=== PATIENT | female | born 1980 | race African-American/Black ===

== ENCOUNTER 2016-11-12 11:25 | Emergency (ER) | payer BC ==
[2016-11-12 11:30] VITALS: BP 150/112; PULSE 67; TEMP 98; BMI 38.4
== END 2016-11-12 11:34 | disposition left against medical advice (07) ==
LOC: JER 11:25
DX: Z53.21 Procedure and treatment not carried out due to patient leaving prior to being seen by health care provider (principal)
CPT/HCPCS: 99281-25

== ENCOUNTER 2017-04-18 14:11 | Emergency (ER) | payer BC, OTHER ==
[2017-04-18 14:19] VITALS: BP 111/63; PULSE 77; TEMP 98.1; BMI 34.0
[2017-04-18] MEDS ORDERED: KETOROLAC TROMETHAMINE 60 MG/2 ML VIAL IM ONE (15:04)
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
[2017-04-18] MEDS ORDERED: ONDANSETRON *ODT* 4 MG TABLET SL ONE (15:15)
[2017-04-18] MEDS ORDERED: ONDANSETRON *ODT* 4 MG TABLET ONE (15:17)
[2017-04-18] MEDS ORDERED: KETOROLAC TROMETHAMINE 60 MG/2 ML VIAL ONE (15:20)
== END 2017-04-18 15:41 | disposition home or self-care (01) ==
LOC: JERFT 14:11
PROC: 3E0233Z Introduction of Anti-inflammatory into Muscle, Percutaneous Approach (ICD-10-PCS; principal; 2017-04-18)
DX: S13.4XXA Sprain of ligaments of cervical spine, initial encounter (principal); Z98.84 Bariatric surgery status; V48.0XXA Car driver injured in noncollision transport accident in nontraffic accident, initial encounter; Y93.89 Activity, other specified; Y92.410 Unspecified street and highway as the place of occurrence of the external cause
CPT/HCPCS: 84703; 99281-25

== ENCOUNTER 2021-03-25 09:56 | Inpatient (IN) | payer OTHER ==
[2021-03-25] MEDS ORDERED: SODIUM CHLORIDE 1,000 ML IV STA (10:45)
[2021-03-25] MEDS ORDERED: ACETAMINOPHEN 1000 MG/100 ML VIAL (NON FORMULARY) IVPB ONE (10:45)
[2021-03-25] MEDS ORDERED: ACETAMINOPHEN INJECTION 100 ML IVPB ONE (10:54)
[2021-03-25 11:16] LABS: BASO % 1.1 % (0-2.0); HEMOGLOBIN 10.3 GM/dL (10.7-15.3); LYMPH % 4.4 % (8-40); MCH 23.8 pg (25.7-33.7); MCHC 32.3 g/dl (32.0-36.0); MEAN CELL VOLUME 73.5 fl (80-96); MEAN PLT VOLUME 6.7 fl (7.5-11.1); MONO % 3.8 % (3.8-10.2); NEUT % 90.7 % (42.8-82.8); PLATELET COUNT 264 10^3/uL (134-434); RBC 4.35 M/mm3 (3.60-5.2); RDW 16.6 % (11.6-15.6); WHITE BLOOD COUNT 10.7 K/mm3 (4.0-10.0)
[2021-03-25 11:35] LABS: ALBUMIN 3.2 g/dl (3.4-5.0); BLOOD UREA NITROGEN 9.3 mg/dL (7-18); CALCIUM 8.6 mg/dL (8.5-10.1)
[2021-03-25 11:39] LABS: CREATININE 0.9 mg/dL (0.55-1.3)
[2021-03-25 11:40] LABS: BILIRUBIN,TOTAL 1.8 mg/dL (0.2-1); TOT PROT 7.2 g/dl (6.4-8.2)
[2021-03-25] MEDS ORDERED: LIDOCAINE 2.5%/PRILOCAINE 2.5% 30 GRAM TUBE TP ONE (13:49)
[2021-03-25] MEDS ORDERED: LIDOCAINE 2.5%/PRILOCAINE 2.5% (5 Gram/TUBE) TP ONE (14:03)
[2021-03-25 14:28] LABS: URINE APPEARANCE CLEAR; URINE BILIRUBIN NEGATIVE (NEGATIVE); URINE COLOR YELLOW; URINE GLUCOSE (UA) NEGATIVE (NEGATIVE); URINE KETONE NEGATIVE (NEGATIVE); URINE LEUK ESTERASE NEGATIVE (NEGATIVE); URINE NITRITE NEGATIVE (NEGATIVE); URINE PROTEIN NEGATIVE (NEGATIVE)
[2021-03-25 14:29] LABS: HCG,QUALITATIVE URINE Negative
[2021-03-25] MEDS ORDERED: morphine CARPU-JECT 4 MG/1 ML DISP.SYRIN IVPUSH ONE (15:55)
[2021-03-25] MEDS ORDERED: morphine SULFATE 4 MG/ML VIAL ONE (16:05)
[2021-03-25] MEDS ORDERED: CEFTRIAXONE 1 GM in DEXTROSE 5%-WATER - 100 ML IVPB ONE (16:44)
[2021-03-25] MEDS ORDERED: DOXYCYCLINE INJECTION 100 MG in DEXTROSE 5%-WATER 100 ML IVPB ONE (16:45)
[2021-03-25] MEDS ORDERED: CEFTRIAXONE 1 GM/50 ML BAG ONE (17:02)
[2021-03-25] MEDS ORDERED: DOXYCYCLINE HYCLATE 100 MG VIAL ONE (17:02)
[2021-03-25] MEDS: SODIUM CHLORIDE 1,000 ML IV SCH (17:55)
[2021-03-25] MEDS ORDERED: CEFTRIAXONE 2 GM in DEXTROSE 5%-WATER 100 ML IVPB ONE (18:28)
[2021-03-25] MEDS: ENOXAPARIN NA (PORCINE) 40 MG/0.4 ML DISP.SYRIN SQ SCH (18:44)
[2021-03-25] MEDS ORDERED: ONDANSETRON 4 MG/2 ML VIAL IVPUSH PRN (19:15)
[2021-03-25] MEDS ORDERED: MORPHINE SULFATE 2 MG/ML VIAL ONE (20:22)
[2021-03-25] MEDS: MORPHINE SULFATE 2 MG/ML VIAL IVPUSH PRN (20:26)
[2021-03-26] MEDS ORDERED: ACETAMINOPHEN 325 MG TABLET (FP) ONE (02:09)
[2021-03-26] MEDS: ACETAMINOPHEN 325 MG TABLET (FP) PO PRN (02:12)
[2021-03-26 03:15] VITALS: BMI 38.5
[2021-03-26] MEDS: MORPHINE SULFATE 2 MG/ML VIAL IVPUSH PRN ×5 (03:32→21:38)
[2021-03-26] MEDS ORDERED: DOXYCYCLINE INJECTION 100 MG in DEXTROSE 5%-WATER 100 ML IVPB SCH (06:00)
[2021-03-26] MEDS ORDERED: DEXTROSE 5%-WATER 100 ML IVPB ONE ×2 (07:19→16:28)
[2021-03-26] MEDS ORDERED: DOXYCYCLINE HYCLATE 100 MG VIAL ONE (07:19)
[2021-03-26] MEDS: ENOXAPARIN NA (PORCINE) 40 MG/0.4 ML DISP.SYRIN SQ SCH (09:08)
[2021-03-26 10:37] LABS: HEMOGLOBIN 9.7 GM/dL (10.7-15.3); MCH 23.1 pg (25.7-33.7); MCHC 31.2 g/dl (32.0-36.0); MEAN CELL VOLUME 74.2 fl (80-96); MEAN PLT VOLUME 7.5 fl (7.5-11.1); PLATELET COUNT 261 10^3/uL (134-434); RBC 4.17 M/mm3 (3.60-5.2); WHITE BLOOD COUNT 14.5 K/mm3 (4.0-10.0)
[2021-03-26 11:03] LABS: ALBUMIN 2.7 g/dl (3.4-5.0); BLOOD UREA NITROGEN 7.8 mg/dL (7-18); CALCIUM 7.8 mg/dL (8.5-10.1); MAGNESIUM 2.2 mg/dL (1.8-2.4)
[2021-03-26 11:07] LABS: CREATININE 0.7 mg/dL (0.55-1.3)
[2021-03-26 11:08] LABS: TOT PROT 6.3 g/dl (6.4-8.2)
[2021-03-26 11:09] LABS: PHOSPHOROUS 2.8 mg/dL (2.5-4.9)
[2021-03-26 12:57] LABS: ERYTHROCYTE SEDIMENTATION RATE 40 mm/hr (0-20)
[2021-03-26] MEDS: SODIUM CHLORIDE 1,000 ML IV SCH ×2 (13:22→18:39)
[2021-03-26 13:28] LABS: ANISOCYTOSIS 1+; MACROCYTOSIS 0; PLATELET ESTIMATE NORMAL
[2021-03-26] MEDS: CEFTRIAXONE 2 GM in DEXTROSE 5%-WATER 2 GM/100 ML BAG IVPB SCH (16:29)
[2021-03-26] MEDS: MELATONIN 5 MG TABLETS PO PRN (21:40)
[2021-03-27] MEDS: MORPHINE SULFATE 2 MG/ML VIAL IVPUSH PRN ×3 (02:02→14:26)
[2021-03-27] MEDS: SODIUM CHLORIDE 1,000 ML IV SCH ×2 (03:03→15:54)
[2021-03-27] MEDS ORDERED: DEXTROSE 5%-WATER 100 ML IVPB ONE (10:18)
[2021-03-27] MEDS: CEFTRIAXONE 2 GM in DEXTROSE 5%-WATER 2 GM/100 ML BAG IVPB SCH (10:20)
[2021-03-27] MEDS: ENOXAPARIN NA (PORCINE) 40 MG/0.4 ML DISP.SYRIN SQ SCH (10:30)
[2021-03-27 11:49] LABS: ALBUMIN 2.3 g/dl (3.4-5.0); BLOOD UREA NITROGEN 6.2 mg/dL (7-18)
[2021-03-27 11:50] LABS: CALCIUM 7.8 mg/dL (8.5-10.1)
[2021-03-27 11:51] LABS: BILIRUBIN,TOTAL 1.4 mg/dL (0.2-1); TOT PROT 5.9 g/dl (6.4-8.2)
[2021-03-27 11:53] LABS: CREATININE 0.7 mg/dL (0.55-1.3)
[2021-03-27 11:55] LABS: HEMATOCRIT 27.5 % (32.4-45.2); HEMOGLOBIN 8.8 GM/dL (10.7-15.3); MCH 23.5 pg (25.7-33.7); MEAN CELL VOLUME 73.3 fl (80-96); MEAN PLT VOLUME 7.5 fl (7.5-11.1); PLATELET COUNT 243 10^3/uL (134-434); RBC 3.75 M/mm3 (3.60-5.2); RDW 16.8 % (11.6-15.6); WHITE BLOOD COUNT 17.9 K/mm3 (4.0-10.0)
[2021-03-27] MEDS: ACETAMINOPHEN 325 MG TABLET (FP) PO PRN (21:31)
[2021-03-27] MEDS: MELATONIN 5 MG TABLETS PO PRN (21:31)
[2021-03-28] MEDS: MORPHINE SULFATE 2 MG/ML VIAL IVPUSH PRN ×2 (04:30→22:11)
[2021-03-28] MEDS ORDERED: DEXTROSE 5%-WATER 100 ML IVPB ONE (10:02)
[2021-03-28] MEDS: CEFTRIAXONE 2 GM in DEXTROSE 5%-WATER 2 GM/100 ML BAG IVPB SCH (10:11)
[2021-03-28] MEDS: ENOXAPARIN NA (PORCINE) 40 MG/0.4 ML DISP.SYRIN SQ SCH (10:11)
[2021-03-28 10:35] LABS: HEMATOCRIT 26.5 % (32.4-45.2); HEMOGLOBIN 8.6 GM/dL (10.7-15.3); MCH 23.7 pg (25.7-33.7); MCHC 32.4 g/dl (32.0-36.0); MEAN PLT VOLUME 7.3 fl (7.5-11.1); PLATELET COUNT 268 10^3/uL (134-434); RBC 3.63 M/mm3 (3.60-5.2); RDW 16.6 % (11.6-15.6)
[2021-03-28 10:42] LABS: CALCIUM 7.5 mg/dL (8.5-10.1)
[2021-03-28 10:43] LABS: ALBUMIN 2.3 g/dl (3.4-5.0); BLOOD UREA NITROGEN 4.8 mg/dL (7-18)
[2021-03-28 10:46] LABS: CREATININE 0.5 mg/dL (0.55-1.3)
[2021-03-28 10:49] LABS: BILIRUBIN,TOTAL 1.1 mg/dL (0.2-1); TOT PROT 5.8 g/dl (6.4-8.2)
[2021-03-28] MEDS: KCL 10 MEQ IVPB 10 MEQ/100 ML INFUS.BAG IVPB SCH ×2 (15:57→17:05)
[2021-03-28] MEDS: MELATONIN 5 MG TABLETS PO PRN (22:11)
[2021-03-29] MEDS: ACETAMINOPHEN 325 MG TABLET (FP) PO PRN ×2 (04:48→14:09)
[2021-03-29 10:12] LABS: HEMATOCRIT 27.6 % (32.4-45.2); HEMOGLOBIN 8.8 GM/dL (10.7-15.3); MCH 23.2 pg (25.7-33.7); MEAN CELL VOLUME 72.5 fl (80-96); MEAN PLT VOLUME 7.1 fl (7.5-11.1); PLATELET COUNT 284 10^3/uL (134-434); RBC 3.81 M/mm3 (3.60-5.2); RDW 16.7 % (11.6-15.6); WHITE BLOOD COUNT 13.6 K/mm3 (4.0-10.0)
[2021-03-29 10:38] LABS: CALCIUM 7.6 mg/dL (8.5-10.1)
[2021-03-29 10:39] LABS: BLOOD UREA NITROGEN 4.9 mg/dL (7-18)
[2021-03-29 10:42] LABS: CREATININE 0.6 mg/dL (0.55-1.3)
[2021-03-29] MEDS ORDERED: DEXTROSE 5%-WATER 100 ML IVPB ONE (11:13)
[2021-03-29] MEDS: CEFTRIAXONE 2 GM in DEXTROSE 5%-WATER 2 GM/100 ML BAG IVPB SCH (11:23)
[2021-03-29] MEDS ORDERED: PT OWN MED DRAWER 7, Y5N ONE (19:47)
[2021-03-30] MEDS: MELATONIN 5 MG TABLETS PO PRN ×2 (00:32→23:35)
[2021-03-30] MEDS: ACETAMINOPHEN 325 MG TABLET (FP) PO PRN ×3 (00:32→23:35)
[2021-03-30] MEDS ORDERED: ACETAMINOPHEN 1000 MG/100 ML VIAL (NON FORMULARY) IVPB ONE (06:37)
[2021-03-30 08:26] LABS: HEMATOCRIT 27.3 % (32.4-45.2); HEMOGLOBIN 8.8 GM/dL (10.7-15.3); MCH 23.1 pg (25.7-33.7); MCHC 32.4 g/dl (32.0-36.0); MEAN CELL VOLUME 71.4 fl (80-96); MEAN PLT VOLUME 6.8 fl (7.5-11.1); PLATELET COUNT 299 10^3/uL (134-434); RBC 3.82 M/mm3 (3.60-5.2); RDW 16.6 % (11.6-15.6); WHITE BLOOD COUNT 13.2 K/mm3 (4.0-10.0)
[2021-03-30 09:06] LABS: BLOOD UREA NITROGEN 6.9 mg/dL (7-18); CALCIUM 7.6 mg/dL (8.5-10.1)
[2021-03-30 09:09] LABS: CREATININE 0.5 mg/dL (0.55-1.3)
[2021-03-30] MEDS ORDERED: DEXTROSE 5%-WATER 100 ML IVPB ONE (09:17)
[2021-03-30] MEDS: CEFTRIAXONE 2 GM in DEXTROSE 5%-WATER 2 GM/100 ML BAG IVPB SCH (09:23)
[2021-03-30] MEDS ORDERED: PT OWN MED DRAWER 7, Y5N ONE (12:10)
[2021-03-30] MEDS ORDERED: POTASSIUM CHLORIDE TABS 20 MEQ TABLET.ER (FP) PO ONE ×2 (19:00→22:00)
[2021-03-30] MEDS: LACTOBACILLUS ACIDOPHILUS 1 TABLET PO SCH ×2 (19:07→21:42)
[2021-03-31] MEDS ORDERED: DEXTROSE 5%-WATER 100 ML IVPB ONE ×2 (09:58→10:34)
[2021-03-31] MEDS: LACTOBACILLUS ACIDOPHILUS 1 TABLET PO SCH (10:04)
[2021-03-31 10:26] LABS: BASO % 0.3 % (0-2.0); EOS % 0.8 % (0-4.5); HEMATOCRIT 28.3 % (32.4-45.2); HEMOGLOBIN 9.1 GM/dL (10.7-15.3); LYMPH % 9.9 % (8-40); MCH 23.2 pg (25.7-33.7); MCHC 32.3 g/dl (32.0-36.0); MEAN CELL VOLUME 71.9 fl (80-96); MEAN PLT VOLUME 7.1 fl (7.5-11.1); MONO % 9.7 % (3.8-10.2); NEUT % 79.3 % (42.8-82.8); PLATELET COUNT 369 10^3/uL (134-434); RBC 3.94 M/mm3 (3.60-5.2); RDW 16.7 % (11.6-15.6); WHITE BLOOD COUNT 12.4 K/mm3 (4.0-10.0)
[2021-03-31] MEDS ORDERED: SODIUM CHLORIDE 1,000 ML IV SCH (10:30)
[2021-03-31 10:50] LABS: CALCIUM 7.9 mg/dL (8.5-10.1)
[2021-03-31 10:51] LABS: ALBUMIN 2.3 g/dl (3.4-5.0); BLOOD UREA NITROGEN 4.7 mg/dL (7-18); MAGNESIUM 2.1 mg/dL (1.8-2.4)
[2021-03-31 10:54] LABS: CREATININE 0.5 mg/dL (0.55-1.3)
[2021-03-31 10:55] LABS: BILIRUBIN,TOTAL 0.4 mg/dL (0.2-1); TOT PROT 6.1 g/dl (6.4-8.2)
[2021-03-31] MEDS: POTASSIUM CHLORIDE 40 MEQ in SODIUM CHLORIDE 1,000 ML IV SCH ×2 (17:32→21:48)
[2021-03-31] MEDS: CEFTRIAXONE 2 GM in DEXTROSE 5%-WATER 2 GM/100 ML BAG IVPB SCH (17:32)
[2021-03-31] MEDS: MORPHINE SULFATE 2 MG/ML VIAL IVPUSH PRN (18:03)
[2021-04-01] MEDS: MELATONIN 5 MG TABLETS PO PRN ×2 (00:01→21:25)
[2021-04-01] MEDS: ACETAMINOPHEN 325 MG TABLET (FP) PO PRN (00:01)
[2021-04-01 01:22] LABS: HEMATOCRIT 29.9 % (32.4-45.2); HEMOGLOBIN 9.6 GM/dL (10.7-15.3); MCH 23.1 pg (25.7-33.7); MCHC 32.1 g/dl (32.0-36.0); MEAN CELL VOLUME 71.8 fl (80-96); MEAN PLT VOLUME 6.9 fl (7.5-11.1); PLATELET COUNT 351 10^3/uL (134-434); RBC 4.17 M/mm3 (3.60-5.2); RDW 16.6 % (11.6-15.6); WHITE BLOOD COUNT 19.3 K/mm3 (4.0-10.0)
[2021-04-01 01:57] LABS: ANISOCYTOSIS 2+; MACROCYTOSIS 1+; OVALOCYTE 1+; PLATELET ESTIMATE NORMAL
[2021-04-01] MEDS ORDERED: DEXTROSE 5%-WATER 100 ML IVPB ONE (09:01)
[2021-04-01] MEDS: LACTOBACILLUS ACIDOPHILUS 1 TABLET PO SCH ×3 (09:31→21:24)
[2021-04-01] MEDS: CEFTRIAXONE 2 GM in DEXTROSE 5%-WATER 2 GM/100 ML BAG IVPB SCH (09:31)
[2021-04-01 09:48] LABS: ALBUMIN 2.2 g/dl (3.4-5.0); BLOOD UREA NITROGEN 5.3 mg/dL (7-18)
[2021-04-01 09:50] LABS: CALCIUM 7.8 mg/dL (8.5-10.1)
[2021-04-01 09:51] LABS: MAGNESIUM 2.1 mg/dL (1.8-2.4)
[2021-04-01 09:54] LABS: BILIRUBIN,TOTAL 0.4 mg/dL (0.2-1); CREATININE 0.5 mg/dL (0.55-1.3)
[2021-04-01 12:31] LABS: HEMATOCRIT 27.6 % (32.4-45.2); HEMOGLOBIN 8.8 GM/dL (10.7-15.3); MCH 22.7 pg (25.7-33.7); MCHC 31.8 g/dl (32.0-36.0); MEAN CELL VOLUME 71.5 fl (80-96); MEAN PLT VOLUME 6.9 fl (7.5-11.1); PLATELET COUNT 355 10^3/uL (134-434); RBC 3.86 M/mm3 (3.60-5.2); RDW 16.7 % (11.6-15.6); WHITE BLOOD COUNT 17.8 K/mm3 (4.0-10.0)
[2021-04-01 14:59] LABS: ANISOCYTOSIS 2+; MACROCYTOSIS 1+; PLATELET ESTIMATE NORMAL; ROULEAU 1+
[2021-04-01] MEDS: POTASSIUM CHLORIDE 40 MEQ in SODIUM CHLORIDE 1,000 ML IV SCH (18:24)
[2021-04-02] MEDS: POTASSIUM CHLORIDE 40 MEQ in SODIUM CHLORIDE 1,000 ML IV SCH (03:03)
[2021-04-02 08:46] LABS: BASO % 0.4 % (0-2.0); EOS % 0.8 % (0-4.5); HEMATOCRIT 26.1 % (32.4-45.2); HEMOGLOBIN 8.4 GM/dL (10.7-15.3); LYMPH % 11.2 % (8-40); MCH 23.2 pg (25.7-33.7); MCHC 32.3 g/dl (32.0-36.0); MEAN CELL VOLUME 71.8 fl (80-96); MONO % 9.1 % (3.8-10.2); NEUT % 78.5 % (42.8-82.8); PLATELET COUNT 360 10^3/uL (134-434); RBC 3.64 M/mm3 (3.60-5.2); RDW 17.1 % (11.6-15.6); WHITE BLOOD COUNT 12.7 K/mm3 (4.0-10.0)
[2021-04-02 09:02] LABS: CALCIUM 7.8 mg/dL (8.5-10.1)
[2021-04-02 09:03] LABS: ALBUMIN 2.1 g/dl (3.4-5.0); BLOOD UREA NITROGEN 5.7 mg/dL (7-18); MAGNESIUM 2.3 mg/dL (1.8-2.4)
[2021-04-02 09:06] LABS: CREATININE 0.6 mg/dL (0.55-1.3); PHOSPHOROUS 3.6 mg/dL (2.5-4.9)
[2021-04-02 09:07] LABS: BILIRUBIN,TOTAL 0.3 mg/dL (0.2-1); TOT PROT 5.9 g/dl (6.4-8.2)
[2021-04-02] MEDS: LACTOBACILLUS ACIDOPHILUS 1 TABLET PO SCH ×2 (09:39→21:11)
[2021-04-02] MEDS ORDERED: DEXTROSE 5%-WATER 100 ML IVPB ONE (10:14)
[2021-04-02] MEDS: CEFTRIAXONE 2 GM in DEXTROSE 5%-WATER 2 GM/100 ML BAG IVPB SCH (10:45)
[2021-04-02] MEDS: SODIUM CHLORIDE 1,000 ML IV SCH (12:14)
[2021-04-02] MEDS: MELATONIN 5 MG TABLETS PO PRN (21:11)
[2021-04-03] MEDS ORDERED: DEXTROSE 5%-WATER 100 ML IVPB ONE (09:50)
[2021-04-03] MEDS: LACTOBACILLUS ACIDOPHILUS 1 TABLET PO SCH ×2 (09:54→21:32)
[2021-04-03] MEDS: CEFTRIAXONE 2 GM in DEXTROSE 5%-WATER 2 GM/100 ML BAG IVPB SCH (09:56)
[2021-04-03 11:17] LABS: BASO % 0.3 % (0-2.0); HEMATOCRIT 27.1 % (32.4-45.2); HEMOGLOBIN 8.8 GM/dL (10.7-15.3); LYMPH % 15.3 % (8-40); MCHC 32.3 g/dl (32.0-36.0); MEAN CELL VOLUME 71.3 fl (80-96); MEAN PLT VOLUME 6.5 fl (7.5-11.1); MONO % 8.2 % (3.8-10.2); NEUT % 75.2 % (42.8-82.8); PLATELET COUNT 408 10^3/uL (134-434); RDW 16.9 % (11.6-15.6); WHITE BLOOD COUNT 9.6 K/mm3 (4.0-10.0)
[2021-04-03 11:47] LABS: ALBUMIN 2.2 g/dl (3.4-5.0); BLOOD UREA NITROGEN 5.9 mg/dL (7-18); CALCIUM 7.9 mg/dL (8.5-10.1); MAGNESIUM 2.3 mg/dL (1.8-2.4)
[2021-04-03 11:50] LABS: CREATININE 0.6 mg/dL (0.55-1.3)
[2021-04-03 11:52] LABS: BILIRUBIN,TOTAL 0.3 mg/dL (0.2-1); TOT PROT 6.2 g/dl (6.4-8.2)
[2021-04-03] MEDS: SODIUM CHLORIDE 1,000 ML IV SCH ×2 (17:06)
[2021-04-04] MEDS: MELATONIN 5 MG TABLETS PO PRN (01:37)
[2021-04-04 05:54] VITALS: TEMP 98.5
[2021-04-04] MEDS ORDERED: AMINO ACIDS/PROTEIN HYDROLYS 30 ML LIQUID.PKT PO SCH (08:00)
[2021-04-04 08:45] LABS: EOS % 1.5 % (0-4.5); HEMATOCRIT 26.6 % (32.4-45.2); HEMOGLOBIN 8.5 GM/dL (10.7-15.3); LYMPH % 20.6 % (8-40); MEAN CELL VOLUME 71.8 fl (80-96); MEAN PLT VOLUME 6.8 fl (7.5-11.1); MONO % 8.6 % (3.8-10.2); NEUT % 68.3 % (42.8-82.8); PLATELET COUNT 419 10^3/uL (134-434); RBC 3.71 M/mm3 (3.60-5.2); RDW 16.9 % (11.6-15.6); WHITE BLOOD COUNT 7.4 K/mm3 (4.0-10.0)
[2021-04-04] MEDS ORDERED: DEXTROSE 5%-WATER 100 ML IVPB ONE (09:07)
[2021-04-04] MEDS: LACTOBACILLUS ACIDOPHILUS 1 TABLET PO SCH (09:29)
[2021-04-04] MEDS: CEFTRIAXONE 2 GM in DEXTROSE 5%-WATER 2 GM/100 ML BAG IVPB SCH (09:29)
[2021-04-04 09:31] LABS: ALBUMIN 2.2 g/dl (3.4-5.0)
[2021-04-04 09:32] LABS: BLOOD UREA NITROGEN 6.3 mg/dL (7-18); CALCIUM 8.3 mg/dL (8.5-10.1); MAGNESIUM 2.3 mg/dL (1.8-2.4)
[2021-04-04 09:34] LABS: CREATININE 0.6 mg/dL (0.55-1.3)
[2021-04-04 09:35] LABS: PHOSPHOROUS 3.9 mg/dL (2.5-4.9)
[2021-04-04 09:36] LABS: BILIRUBIN,TOTAL 0.2 mg/dL (0.2-1); TOT PROT 6.2 g/dl (6.4-8.2)
[2021-04-04] MEDS ORDERED: MULTIVITAMINS (DAILY MVI) TABLET (FP) PO SCH (10:00)
[2021-04-04 14:22] VITALS: BP 128/74; PULSE 62
== END 2021-04-04 18:21 | disposition home or self-care (01) | DRG 759 ==
LOC: JER 09:56 → JERBED 17:58 → J6S 03-26 02:51
PROVIDERS: ADMIT Internal Medicine; ATTEND Internal Medicine
PROC: 0W9J3ZZ Drainage of Pelvic Cavity, Percutaneous Approach (ICD-10-PCS; principal; 2021-03-31)
DX: N73.9 Female pelvic inflammatory disease, unspecified (principal); K59.09 Other constipation; D25.9 Leiomyoma of uterus, unspecified; N83.209 Unspecified ovarian cyst, unspecified side; K63.89 Other specified diseases of intestine; N94.9 Unspecified condition associated with female genital organs and menstrual cycle; D50.9 Iron deficiency anemia, unspecified; K44.9 Diaphragmatic hernia without obstruction or gangrene; K80.20 Calculus of gallbladder without cholecystitis without obstruction; E05.90 Thyrotoxicosis, unspecified without thyrotoxic crisis or storm; Z98.84 Bariatric surgery status; B96.20 Unspecified Escherichia coli [E. coli] as the cause of diseases classified elsewhere
CPT/HCPCS: 36415; 49407; 72193-TC; 74177-TC; 76705-TC; 76830-TC; 80048; 80053; 81003; 82248; 82728; 83010; 83540; 83550; 83615; 83690; 83735; 84100; 84436; 84443; 84481; 84703; 85025; 85027; 85651; 86140; 87070; 87075; 87081; 87086; 87102; 87116; 87186; 87205; 87206; 87210; 87324; 87449; 87491; 87591; 87661; 88108; 93005; 93010; 99285-25; C1729; C1769; C9803; J0131; Q9967; U0003; U0005

== ENCOUNTER → 2021-04-15 | Day surgery (SDC) | payer OTHER | END | disposition home or self-care (01) | LOC: JRADIR 09:15 | PROVIDERS: ATTEND Radiology Diagnostic Radiology | PROC: BW11YZZ Fluoroscopy of Abdomen and Pelvis using Other Contrast (ICD-10-PCS; principal; 2021-04-15) | DX: K65.1 Peritoneal abscess (principal) | CPT/HCPCS: 49424; 72192-TC; 76080-TC-FY ==